=== PATIENT | female | born 1970 | race Native Hawaiian/Other Pacific Islander ===

== ENCOUNTER 2019-08-02 20:43 | Emergency (ER) | payer OTHER ==
[~2019-08-02] VITALS: Ht 157.5 cm; Wt 80.7 kg
[2019-08-03 00:10] VITALS: BP 125/84; TEMP 98.6
== END 2019-08-03 00:13 | disposition home or self-care (01) ==
LOC: ED 20:43
DX: J10.1 Influenza due to other identified influenza virus with other respiratory manifestations (principal)
CPT/HCPCS: 87502; 87651; 99283

== ENCOUNTER 2019-09-24 11:46 | Outpatient (CLI) | payer BC, OTHER ==
[2019-09-24 12:18] LABS: PLATELET COUNT 248 K/uL (152-353)
== END 2019-09-24 19:34 | disposition home or self-care (01) ==
LOC: LABW 11:46
DX: I73.00 Raynaud's syndrome without gangrene (principal); M06.4 Inflammatory polyarthropathy; R79.82 Elevated C-reactive protein (CRP); Z79.899 Other long term (current) drug therapy
CPT/HCPCS: 36415; 80053; 85027

== ENCOUNTER 2020-01-14 13:13 | Outpatient (CLI) | payer BC, OTHER ==
[2020-01-14 13:43] LABS: PLATELET COUNT 243 K/uL (152-353)
[2020-01-14 13:55] LABS: POTASSIUM 3.8 mmol/L (3.6-5.2)
== END 2020-01-14 20:07 | disposition home or self-care (01) ==
LOC: LABW 13:13
PROVIDERS: Nurse Practitioner Gerontology
DX: I73.00 Raynaud's syndrome without gangrene (principal); M06.4 Inflammatory polyarthropathy; R79.82 Elevated C-reactive protein (CRP)
CPT/HCPCS: 36415; 80053; 85027; 85651; 86140

== ENCOUNTER 2020-12-23 14:10 | Outpatient (CLI) | payer BC, OTHER ==
[2020-12-23 15:32] LABS: PLATELET COUNT 215 K/uL (152-353)
== END 2020-12-23 20:33 | disposition home or self-care (01) ==
LOC: LABW 14:10
PROVIDERS: ATTEND Nurse Practitioner Gerontology
DX: M06.4 Inflammatory polyarthropathy (principal); Z79.899 Other long term (current) drug therapy
CPT/HCPCS: 36415; 80053; 85027; 85652; 86140

== ENCOUNTER 2021-04-05 16:38 | Emergency (ER) | payer BC, OTHER ==
[~2021-04-05] VITALS: Ht 157.5 cm; Wt 76.2 kg
[2021-04-05 18:54] LABS: PLATELET COUNT 146 K/uL (152-353)
[2021-04-05 19:05] LABS: PARTIAL THROMBOPLASTIN TIME 28.1 SECONDS (24.5-33.6)
[2021-04-05 19:08] LABS: POTASSIUM 3.5 mmol/L (3.6-5.2); SODIUM 142 mmol/L (136-145)
[2021-04-05 21:00] VITALS: BP 111/65
[2021-04-05 21:36] VITALS: TEMP 99.2
== END 2021-04-05 21:40 | disposition home or self-care (01) ==
LOC: ED 16:38
PROVIDERS: Emergency Medicine
DX: U07.1 COVID-19 (principal); J12.82 Pneumonia due to coronavirus disease 2019; I48.91 Unspecified atrial fibrillation
CPT/HCPCS: 36415; 80053; 83880; 84484; 85027; 85379; 85610; 85730; 93005; 99283

== ENCOUNTER 2022-08-26 10:11 | Outpatient (CLI) | payer BC, OTHER | END 2022-08-26 19:29 | disposition home or self-care (01) | LOC: RAD 10:11 | PROVIDERS: ATTEND Nurse Practitioner Gerontology | DX: M06.4 Inflammatory polyarthropathy (principal) ==

== ENCOUNTER 2023-03-16 10:53 | Outpatient (CLI) | payer BC, OTHER | END 2023-03-16 20:15 | disposition home or self-care (01) | LOC: RESP 10:53 | PROVIDERS: ATTEND Internal Medicine | DX: R00.2 Palpitations (principal) | CPT/HCPCS: 93005 ==